=== PATIENT | male | born 1985 | race Caucasian/White ===

== ENCOUNTER 2018-01-09 14:06 | Emergency (ER) | payer OTHER ==
[~2018-01-09] VITALS: Ht 180.3 cm; Wt 90.7 kg
== END 2018-01-09 17:06 | disposition home or self-care (01) ==
LOC: ED 14:06
DX: S20.212A Contusion of left front wall of thorax, initial encounter (principal); W22.8XXA Striking against or struck by other objects, initial encounter; Y93.89 Activity, other specified; Y92.89 Other specified places as the place of occurrence of the external cause; Y99.9 Unspecified external cause status